=== PATIENT | male | born 1985 | race Caucasian/White ===

== ENCOUNTER 2017-12-18 21:28 | Emergency (ER) | payer OTHER ==
[~2017-12-18] VITALS: Ht 170.2 cm; Wt 97.3 kg
[2017-12-18 21:37] VITALS: Ht 170.2 cm; Wt 97.3 kg
[2017-12-18] MEDS ORDERED: AMOX875T PO (21:55)
[2017-12-18] MEDS ORDERED: AMOXICIL/CLAVU 875MG HOME PACK PO ONE (22:00)
[2017-12-18] MEDS ORDERED: MOTRIN HOME PACK 600 MG (4)BTL PO ONE (22:00)
[2017-12-18] MEDS ORDERED: PROPRANOLOL PO (22:01)
[2017-12-18] MEDS ORDERED: METH10CO PO (22:01)
[2017-12-18] MEDS ORDERED: NRN600 PO (22:01)
[2017-12-18] MEDS ORDERED: LTHSR/300 PO (22:01)
[2017-12-18] MEDS ORDERED: BUPR-79 PO (22:01)
[2017-12-18] MEDS ORDERED: BUPR100T8 PO (22:01)
[2017-12-18 22:06] VITALS: BP 127/77; PULSE 84; TEMP 36.8; O2SAT 98
--- NOTE | 2017-12-19 05:10 | EMERGENCY ROOM VISIT NOTE ---
History First contact with patient: 21:46 Chief Complaint: EAR PAIN Stated Complaint: L EAR ACHE, SORE THROAT, FEVER History of Present Illness The patient is a 32 year old male who presents to the Emergency Room with complaints of cold symptoms for the past few days who developed left ear pain yesterday that is now draining. Patient complains of subjective fever and chills. Patient denies chest pain, dyspnea, neck stiffness, abdominal pain, headache, vomiting, diarrhea. No recent antibiotics. Review of Systems See HPI for pertinent positives & negatives. A total of 10 systems reviewed and were otherwise negative. Past Medical/Surgical History None Social History Smoking Status: Former Smoker Drug Use: none Occupation Status: employed Current/Historical Medications Scheduled Amoxicillin & Pot Clavulanate (Augmentin 875-125 mg), 1 TAB PO BID Bupropion (Wellbutrin Sr), 100 MG PO QAM Bupropion (Wellbutrin Sr), 150 MG PO QAM Gabapentin (Gabapentin), 600 MG PO TID Laurie Carbonate (Laurie Carbonate), 300 MG PO BID Methadone Hcl (Methadone Hcl Intensol), 129 MG PO DAILY [Propranolol], 2 TABS PO DAILY Physical Exam Vital Signs Date Time Temp Pulse Resp B/P (MAP) Pulse Ox O2 Delivery O2 Flow Rate FiO2 12/18/17 22:06 36.8 84 18 127/77 98 12/18/17 21:37 37.5 72 20 125/73 98 Room Air Physical Exam VITALS: Vitals are noted on the nurse's note and reviewed by myself. Vital signs stable. GENERAL: Pleasant male, in no acute distress, nondiaphoretic, well-developed well-nourished. SKIN: The skin was without rashes, erythema, edema, or bruising. There is no tenting of the skin. Capillary reflex less than 2 seconds. HEAD: Normocephalic atraumatic. EARS: Left ear canal full of pus and unable to visualize landmarks concerning for tympanic membrane rupture, right External auditory canals clear, tympanic membranes pearly mayers without erythema or effusion, no mastoid tenderness bilaterally. EYES: Pupils equal round and reactive to light and accommodation. Conjunctivae without injection, sclerae without icterus. Extraocular movements intact. NOSE: Patent, turbinates without inflammation or discharge. No sinus tenderness. MOUTH: Mucous membranes moist. Pharynx without erythema or exudate. Uvula midline. Airway patent. Tongue does not deviate. NECK: Supple without nuchal rigidity. No lymphadenopathy. No thyromegaly. Cervical spine is nontender. No JVD. No meningeal signs HEART: Regular rate and rhythm without murmurs gallops or rubs. LUNGS: Clear to auscultation bilaterally without wheezes, rales or rhonchi. No dullness to percussion. No retractions or accessory muscle use. ABDOMEN: Positive bowel sounds x 4. Normal tympanic percussion. Soft, nontender, without masses or organomegaly. Gonzalez sign negative. No guarding or rebound tenderness. MUSCULOSKELETAL: No muscle atrophy, erythema, or edema noted. NEURO: Patient was alert and oriented to person place and time. Normal sensation to light and sharp touch. No focal neurological deficits. Medical Decision & Procedures Medications Administered Medications (Trade) Dose Ordered Sig/Payal Route Start Time Stop Time Status Last Admin Dose Admin Amoxicillin/ Clavulanate Potassium (Augmentin 875MG Home Pack) 1 homepack UD ONCE PO 12/18/17 22:00 12/18/17 22:01 DC 12/18/17 21:59 1 HOMEPACK Ibuprofen (Ibuprofen 600mg Home Pack) 1 homepack UD ONCE PO 12/18/17 22:00 12/18/17 22:01 DC 12/18/17 21:59 1 HOMEPACK ED Course Prior records/ancillary studies reviewed. Triage Nursing notes reviewed. The patient's history was concerning for a cold symptoms. Differential diagnosis: Etiologies such as viral syndrome, tonsillitis, streptococcal pharyngitis, mononucleosis, peritonsillar abscess, retropharyngeal abscess, otitis, pneumonia , influenza, as well as others were entertained. ER treatment provided: Augmentin, Motrin On reassessment the patient felt better. Diagnostics interpreted by me: Deferred This appears to be consistent with otitis media with rupture. Patient was started on antibiotics. He had no signs of mastoiditis or meningitis. He is well-appearing. He is advised take medications as directed, rest, stay well- hydrated and not to put anything within the ear. He is advised follow-up family care in a day or 2 or here in the ER sooner for high fevers, lethargy, next of this, worsening signs or symptoms or as needed. By the evaluation outlined above emergent etiologies such as peritonsillar abscess, retropharyngeal abscess, pneumonia, meningitis, urinary tract infection, sepsis , bacteremia, as well as others were deemed relatively unlikely. The pt informed about the findings as listed above. All questions were answered and pleased with the treatment. Return instructions were outlined and the patient was discharged in stable condition. Outpatient prescription management: Augmentin Referral: The patient was referred back to their primary care physician for follow-up in 2 to 3 days for a recheck of the current condition. Medical Decision As above Medication Reconcilliation Current Medication List: was personally reviewed by me Blood Pressure Screening Patient's blood pressure: Normal blood pressure Impression Primary Impression: Otitis media Departure Information Dispostion Home / Self-Care Condition GOOD Prescriptions Amoxicillin & Pot Clavulanate (Augmentin 875-125 mg) 1 Tab Tab 1 TAB PO BID for 9 Days, #18 TAB Prov: Chandrika Vargas .VALERIE 12/18/17 Forms WORK / SCHOOL INSTRUCTIONS, HOME CARE DOCUMENTATION FORM, Days off work : 2 Work Instructions, IMPORTANT VISIT INFORMATION Patient Instructions [facility], ED Otitis Media Acute Adult Additional Instructions Augmentin 875 m tablet twice a day for 10 days.Any medication can cause an allergic reaction, stop the pills immediately and return to the ER for rash, hives, breathing difficulties, or swelling. Acetaminophen(Tylenol) may be used for fever or pain. Use 1000mg every six hours as needed. Avoid using more than 3000mg in a 24 hour period. (AND/OR) Ibuprofen(Motrin, Advil) may be used for fever or pain. Use 600mg every six hours as needed. Take with food. Avoid using more than 2400mg in a 24 hour period. Do not use 2400mg per day for more than three consecutive days without physician direction. Prolonged inappropriate use can lead to stomach upset or ulcers. Afrin nasal spray: 2-3 sprays to each nostril twice daily as needed for congestion. Do not use for more than 3-4 days because it can lead to worsening rebound congestion. Pseudoephedrine(Sudaphed): 30-60mg every 6 hours as needed for nasal congestion. Do not take this with other stimulant products or supplements. Rest and drink plenty of fluids. Controlling your fever with Tylenol and Ibuprofen as above will make you feel better. Wash your hands after nose blowing, sneezing, or coughing. Most germs are spread through contact, therefore improper hygiene may result in your close contacts and loved ones becoming ill just like you. Continue current medications. Do not put any medicationa or instruments in the ear until the infection clears. Return to the ER for severe headache, neck stiffness, chest pain, difficulty breathing, fevers, vomiting, worsening of your condition, or as needed. Follow up with your primary physician this week for a recheck of your current condition. Problem Qualifiers Primary Impression: Otitis media Otitis media type: suppurative Chronicity: acute Laterality: left Recurrence: not specified as recurrent Spontaneous tympanic membrane rupture: with spontaneous rupture Qualified Codes: H66.012 - Acute suppurative otitis media with spontaneous rupture of ear drum, left ear
== END 2017-12-18 22:05 | disposition home or self-care (01) ==
LOC: C.EDB 21:30 → C.EDD 22:05
DX: H92.01 Otalgia, right ear (principal); H92.12 Otorrhea, left ear; Z87.891 Personal history of nicotine dependence; Z79.891 Long term (current) use of opiate analgesic